=== PATIENT | male | born 1970 | race Caucasian/White ===

== ENCOUNTER 2020-04-24 11:07 | Outpatient (REF) | payer OTHER, SELFPAY | END 2020-04-24 11:08 | disposition home or self-care (01) | LOC: HO.LAB 11:07 | PROVIDERS: Visit Provider Internal Medicine | DX: Z20.828 Contact with and (suspected) exposure to other viral communicable diseases (principal) | CPT/HCPCS: C9803; U0003 ==

== ENCOUNTER 2020-05-20 11:58 | Outpatient (REF) | payer OTHER, SELFPAY ==
[2020-05-20 12:58] LABS: MANUAL DIFF FLAG NO
[2020-05-20 13:04] LABS: Basophils Absolute Auto 0.1 X10*3/uL (0.0-0.2); Basophils Percent Auto 0.7 % (0-2); Eosinophils Absolute Auto 0.2 X10*3/uL (0.0-0.4); Eosinophils Percent Auto 1.3 % (0-4); Hematocrit 41.3 % (42-52); Hemoglobin 13.5 g/dl (14.0-18.0); Imm Gran Abs Auto 0.02 X10*3/uL (0.00-0.03); Imm Gran Pct Auto 0.2 % (0.0-0.4); Lymphocytes Absolute Auto 3.4 X10*3/uL (1.2-4.9); Lymphocytes Percent Auto 29.1 % (20-40); Mean Corpuscular HGB Conc 32.7 g/dl (31.0-36.0); Mean Corpuscular Hemoglobin 28.7 pg (27.0-33.0); Mean Corpuscular Volume 87.7 fL (80-98); Mean Platelet Volume 10.3 fL (9.4-12.4); Monocytes Percent Auto 8.8 % (2-11); Neutrophils Percent Auto 59.9 % (45-73); Platelet Count 395 X10*3/uL (160-400); Red Blood Count 4.71 X10*6/uL (4.60-5.80); Red Cell Distribution Width 14.2 % (11.0-16.0); White Blood Count 11.6 X10*3/uL (4.8-10.8)
[2020-05-20 13:55] LABS: Alanine Aminotransferase 17 U/L (0-40); Albumin Level 4.4 g/dL (3.5-5.0); Alkaline Phosphatase 73 U/L (39-117); Anion Gap 12 (12-20); Aspartate Amino Transferase 22 U/L (5-37); Bilirubin Total 0.4 mg/dL (0.0-1.0); Blood Urea Nitrogen 12 mg/dL (9-16); Calcium 8.7 mg/dL (8.4-10.2); Carbon Dioxide 25 mmol/L (22-29); Chloride 104 mmol/L (96-108); Cholesterol 240 mg/dL; Estimated Glomerular Filt Rate > 60; Glucose Fasting 106 mg/dL (60-99); HDL Cholesterol 52 mg/dL; LDL Cholesterol Calculated 123 mg/dl; Potassium 4.2 mmol/l (3.3-5.1); Sodium 137 mmol/L (135-145); Total Protein 7.4 g/dL (6.5-8.0); Triglycerides 325 mg/dL
== END 2020-05-20 11:59 | disposition home or self-care (01) ==
LOC: HO.LAB 11:58
PROVIDERS: PCP Internal Medicine; Visit Provider Internal Medicine
DX: Z00.00 Encounter for general adult medical examination without abnormal findings (principal); E11.9 Type 2 diabetes mellitus without complications
CPT/HCPCS: 36415; 80053; 80061; 85025

== ENCOUNTER 2020-06-08 10:22 | Outpatient (REF) | payer OTHER, SELFPAY | END 2020-06-08 10:23 | disposition home or self-care (01) | LOC: HO.LAB 10:22 | PROVIDERS: Visit Provider Internal Medicine | DX: Z20.828 Contact with and (suspected) exposure to other viral communicable diseases (principal) | CPT/HCPCS: C9803; U0003 ==

== ENCOUNTER 2020-06-17 12:38 | Outpatient (REF) | payer OTHER, SELFPAY | END 2020-06-17 12:39 | disposition home or self-care (01) | LOC: HO.LAB 12:38 | PROVIDERS: Visit Provider Internal Medicine | DX: Z20.828 Contact with and (suspected) exposure to other viral communicable diseases (principal) | CPT/HCPCS: 36415; C9803; U0003 ==

== ENCOUNTER → 2020-06-25 11:27 | Outpatient (BNVA) | payer MEDICAID, SELFPAY | PROVIDERS: PCP Internal Medicine; Visit Provider Internal Medicine Gastroenterology | DX: Z76.89 Persons encountering health services in other specified circumstances (principal) ==

== ENCOUNTER 2020-06-30 11:26 | Outpatient (REF) | payer OTHER, SELFPAY | END 2020-06-30 11:27 | disposition home or self-care (01) | LOC: HO.LAB 11:26 | PROVIDERS: Visit Provider Internal Medicine | DX: Z20.822 Contact with and (suspected) exposure to COVID-19 (principal) | CPT/HCPCS: 36415; C9803; U0003 ==

== ENCOUNTER 2020-07-07 09:47 | Outpatient (REF) | payer OTHER, SELFPAY ==
--- NOTE | 2020-07-07 09:50 | US_ITS ---
EXAMINATION: US ABDOMEN COMPLETE CLINICAL INFORMATION: Status post surgery of gastric cancer 13 years ago, abdominal pain. COMPARISON: None TECHNIQUE: Real-time imaging of the abdominal viscera. FINDINGS: PANCREAS: The pancreas is completely obscured by overlying gas. ABDOMINAL AORTA: The proximal, mid, and distal segments are normal in caliber. INFERIOR VENA CAVA: Visualized portions are normal. LIVER: The liver is a normal size, heterogenous with normal contour. There is a hyperechoic lesion in the right hepatic lobe measuring 5.2 x 1.9 x 2.2 cm most likely a hemangioma. Differential diagnoses includes focal fatty infiltration. GALLBLADDER: Surgically absent. COMMON BILE DUCT: Normal in caliber measuring 0.25 cm in diameter. RIGHT KIDNEY: Normal. No hydronephrosis. No renal calculi or focal parenchymal lesions. The kidney measures 9.9 cm in maximum dimension. LEFT KIDNEY: Normal. No hydronephrosis. No renal calculi or focal parenchymal lesions. The kidney measures 10.8 cm in maximum dimension. SPLEEN: Normal. The spleen measures 7.2 cm in maximum dimension. FREE FLUID: None. US/US abdomen complete IMPRESSION: 1. Likely right hepatic lobe hemangioma. Differential diagnosis includes focal fatty infiltration. 2. The rest of the abdominal ultrasound is unremarkable.
== END 2020-07-07 09:48 | disposition home or self-care (01) ==
LOC: HO.US 09:47
PROVIDERS: Visit Provider Internal Medicine Gastroenterology
DX: R10.9 Unspecified abdominal pain (principal)
CPT/HCPCS: 76700

== ENCOUNTER 2020-07-15 08:56 | Outpatient (REF) | payer OTHER, SELFPAY ==
[2020-07-15 09:46] LABS: MANUAL DIFF FLAG NO
[2020-07-15 09:52] LABS: Basophils Absolute Auto 0.1 X10*3/uL (0.0-0.2); Basophils Percent Auto 0.5 % (0-2); Eosinophils Absolute Auto 0.4 X10*3/uL (0.0-0.4); Eosinophils Percent Auto 3.2 % (0-4); Hemoglobin 13.6 g/dl (14.0-18.0); Imm Gran Abs Auto 0.04 X10*3/uL (0.00-0.03); Imm Gran Pct Auto 0.4 % (0.0-0.4); Lymphocytes Absolute Auto 4.7 X10*3/uL (1.2-4.9); Lymphocytes Percent Auto 42.5 % (20-40); Mean Corpuscular HGB Conc 32.4 g/dl (31.0-36.0); Mean Corpuscular Hemoglobin 27.9 pg (27.0-33.0); Mean Corpuscular Volume 86.1 fL (80-98); Mean Platelet Volume 9.3 fL (9.4-12.4); Monocytes Percent Auto 8.7 % (2-11); Neutrophils Absolute Auto 4.9 X10*3/uL (2.0-8.3); Neutrophils Percent Auto 44.7 % (45-73); Platelet Count 468 X10*3/uL (160-400); Red Blood Count 4.88 X10*6/uL (4.60-5.80); Red Cell Distribution Width 13.7 % (11.0-16.0)
[2020-07-15 10:39] LABS: Alanine Aminotransferase 17 U/L (0-40); Albumin Level 4.1 g/dL (3.5-5.0); Alkaline Phosphatase 74 U/L (39-117); Anion Gap 15 (12-20); Aspartate Amino Transferase 16 U/L (5-37); Bilirubin Total 0.5 mg/dL (0.0-1.0); Blood Urea Nitrogen 12 mg/dL (9-16); C Reactive Protein 0.68 mg/dL (< or = 0.50); Calcium 8.9 mg/dL (8.4-10.2); Carbon Dioxide 24 mmol/L (22-29); Chloride 104 mmol/L (96-108); Estimated Glomerular Filt Rate > 60; Glucose Random 91 mg/dL (60-115); Lipase 8 U/L (8-78); Potassium 4.3 mmol/L (3.3-5.1); Sodium 139 mmol/L (135-145); Total Protein 7.1 g/dL (6.5-8.0)
== END 2020-07-15 08:57 | disposition home or self-care (01) ==
LOC: HO.LAB 08:56
PROVIDERS: PCP Physician Assistant; Visit Provider Internal Medicine Gastroenterology
DX: R10.9 Unspecified abdominal pain (principal)
CPT/HCPCS: 36415; 80053; 83690; 85025; 86140

== ENCOUNTER → 2020-08-20 10:06 | Outpatient (BNVA) | payer OTHER, SELFPAY | PROVIDERS: PCP Physician Assistant; Visit Provider Internal Medicine Gastroenterology ==

== ENCOUNTER 2020-09-01 06:17 | Day surgery (SDC) | payer OTHER, SELFPAY ==
--- NOTE | 2020-08-31 10:38 | HO.ANESPROP2 ---
Documented by User: Irais Tatyana 08/31/20 10:40 HPI - Anesthesia Eval Consult details Narrative: 50yo M for Upper Endoscopy s/p partial gastrectomy 2007 r/t gastric cancer PMFSH Active Problems Active Problems: All Active Problems (Updated 08/20/20 @ 10:42 by Cristina Mendez MD) GERD (gastroesophageal reflux disease) (Acute) Stomach cancer (Acute) Physical exam (Acute) Myalgia (Acute) Abdominal pain (Acute) Back pain (Acute) Past Medical History Medical History Depression GERD (gastroesophageal reflux disease) Stomach cancer Family History Family History Father No problems noted. Mother Hx of type 1 diabetes mellitus Family history of high blood pressure Surgical History Surgical History H/O colonoscopy History of esophagogastroduodenoscopy (EGD) History of stomach cancer History of tonsillectomy Hx of bilateral hip replacements Hx of cholecystectomy Social History Social History Household Members: Spouse and Children Alcohol intake: current Alcohol intake frequency: does not drink Smoking Status: Current every day smoker Tobacco Type: Cigarette Cigarettes Per Day: 10 Smoked in Last 30 Days: Yes Patient Interested in Nicotine Replacement: No Use of substances other than those prescribed or required for medical reasons: No Advance Directives: No Advance Directives Information Provided: Yes Recently lost weight without trying: No Meds Allergies Allergy/AdvReac Type Severity Reaction Status Date / Time No Known Allergies Allergy Verified 08/20/20 10:07 Home Medications Medication Instructions Recorded Confirmed Last Taken Type gabapentin 100 mg capsule 100 mg PO TID 06/24/20 08/20/20 Unknown History sertraline 100 mg tablet 100 mg PO DAILY 06/24/20 08/20/20 Unknown History trazodone 100 mg tablet 100 mg PO BEDTIME 06/24/20 08/20/20 Unknown History melatonin 1 cap PO DAILY 08/11/20 08/20/20 Unknown History Exam Exam Date and Time: August 31, 2020 1038 Pertinent Lab Results Pertinent Lab Results: Laboratory Tests 07/15/20 07/15/20 09:12 09:12 WBC 11.0 H Hgb 13.6 L Hct 42.0 Plt Count 468 H Sodium 139 Potassium 4.3 Chloride 104 Carbon Dioxide 24 BUN 12 Creatinine 1.00 Assessment and Plan Assessment Anesthesia Assessment: Chart Reviewed Documented by User: Fabiana Dennis 09/01/20 08:07 [facility] Past Medical History Medical History Depression GERD (gastroesophageal reflux disease) Stomach cancer Family History Family History Father No problems noted. Mother Hx of type 1 diabetes mellitus Family history of high blood pressure Surgical History Surgical History H/O colonoscopy History of esophagogastroduodenoscopy (EGD) History of stomach cancer History of tonsillectomy Hx of bilateral hip replacements Hx of cholecystectomy Social History Social History Household Members: Spouse and Children Alcohol intake: current Alcohol intake frequency: does not drink Smoking Status: Current every day smoker Tobacco Type: Cigarette Cigarettes Per Day: 10 Smoked in Last 30 Days: Yes Patient Interested in Nicotine Replacement: No Use of substances other than those prescribed or required for medical reasons: No Advance Directives: No Advance Directives Information Provided: Yes Recently lost weight without trying: No Meds Allergies Allergy/AdvReac Type Severity Reaction Status Date / Time No Known Allergies Allergy Verified 08/20/20 10:07 Home Medications Medication Instructions Recorded Confirmed Last Taken Type gabapentin 100 mg capsule 100 mg PO TID 06/24/20 08/20/20 Unknown History sertraline 100 mg tablet 100 mg PO DAILY 06/24/20 08/20/20 Unknown History trazodone 100 mg tablet 100 mg PO BEDTIME 06/24/20 08/20/20 Unknown History melatonin 1 cap PO DAILY 08/11/20 08/20/20 Unknown History Exam Airway Mallampati Class: II TM Dist: >3cm Neck ROM: Full Loose/Missing/Broken Teeth: No Heart: RRR Lungs: CTA Assessment and Plan Assessment Anesthesia Assessment: Anesthesia Plan Discussed and Chart Reviewed Final Anesthetic Review NPO: Yes ASA Class: II Final Preanesthetic Review: Meds/Allgs Chart Reviewed, Consent Obtained/Reviewed and Anes Risks/Benef Reviewed Patient Risk: Low Procedure Risk: Intermediate Anesthetic Plan Anesthetic Plan: MAC: Disposition: Standard PACU
[2020-09-01 06:28] VITALS: BP 129/82; PULSE 79; RESP 15; TEMP 36.2; O2SAT 98; BMI 32.4
--- NOTE | 2020-09-01 07:19 | W.PM.OPN ---
Operative Note Operative Note Date of Service: 09/01/20 Narrative: Pre-op diagnosis: Abdominal pain, postprandial nausea and vomiting Post-op diagnosis: other (Gastric outlet obstruction, ? Pyloric mass) Procedure: FLEXIBLE TRANSORAL UPPER GASTROINTESTINAL ENDOSCOPY WITH BIOPSIES Consent: Indications for the procedure and potential complications of bleeding, perforation, reaction to medications and missed diagnosis were discussed with the patient and informed consent was obtained. Instrument: Olympus GIF H 190 mid size upper endoscope Monitoring: Vital signs and clinical assessment, continuous EKG monitoring, Pulse oximetry, Carbon Dioxide monitoring and blood pressure monitoring were done throughout the procedure. Procedure: The patient was placed in the left lateral decubitis position and pre-procedure medications were administered and a bite block was placed. The endoscope was inserted into the mouth and advanced under direct vision to the third part of duodenum. A careful inspection was made as the upper endoscope was withdrawn including a retroflexed examination of the proximal stomach; Findings and interventions are described below. Findings: Larynx: Normal Esophagus: GE junction at 36 cms.. No esophagitis or Ray Stomach: Large amount of retained partially digested food in the stomach. ?Partially obstructing mass just distal to the pylorus. Biopsies were obtained. Retroflexed examination was not performed due to risk of aspiration. Duodenum: Normal bulb and descending duodenum Intervention: Biopsies as noted above Impression and Post Procedure Diagnosis: Endoscopy Findings: STOMACH: Large amount of retained partially digested food in the stomach. ?Partially obstructing mass just distal to the pylorus. Biopsies were obtained. Retroflexed examination was not performed due to risk of aspiration. Plan: Await pathology results. Patient will be scheduled for an abdominal CT scan for further evaluation of his symptoms and follow-up of suspected pyloric mass He has an appointment on 09/17/20 in the GI Clinic with Cristina Mendez M.D. Above findings were reviewed with the patient. Surgeon: Cristina Mendez MD Anesthesia: MAC (Dr Dennis) Connection Worker: Kinjal Sow Estimated blood loss (mL): 0 Pathology: other (A. Pyloric mass) Condition: stable Disposition: PACU
--- NOTE | 2020-09-01 07:19 | MHC.SHP ---
Pre-Procedural Eval Section A The patient is an INPATIENT: No Changes since office visit: Yes Patient answered all questions; No Cold of Flu in the past 2 weeks, No New Medical Problems and No Changes in Medication The History & Physical has been completed within 30 days and I have reviewed it.: Yes Section B Chief Complaint: Dysphagia, Vomiting Allergies: Allergies Allergy/AdvReac Type Severity Reaction Status Date / Time No Known Allergies Allergy Verified 08/20/20 10:07 Exam Surgical H&P Exam: Normal: Heart, Normal: Lungs and Normal: Extremities and Significant Findings: Abdomen (epigastric and LUQ tenderness) Plan Diagnosis/Plan: Unchanged I have reviewed the history and physical and performed a pertinent physical examination on my patient. No changes have occurred unless specified.
[2020-09-01 07:58] VITALS: BP 109/61; PULSE 78; RESP 18; TEMP 36.3; O2SAT 98
[2020-09-01] MEDS: Lactated Ringers 1,000 ML 100 ML IVCONT (08:00)
[2020-09-01 08:13] VITALS: BP 111/69; PULSE 73; RESP 20; O2SAT 98
[2020-09-01 08:28] VITALS: BP 117/76; PULSE 75; RESP 18; O2SAT 98
== END 2020-09-01 10:15 | disposition home or self-care (01) ==
PROVIDERS: PCP Physician Assistant; Visit Provider Internal Medicine Gastroenterology
PROC: 0DJ08ZZ Inspection of Upper Intestinal Tract, Via Natural or Artificial Opening Endoscopic (ICD-10-PCS; CPT 43235; principal; 2020-09-01 07:30)
DX: R13.10 Dysphagia, unspecified (principal); K31.1 Adult hypertrophic pyloric stenosis; R19.09 Other intra-abdominal and pelvic swelling, mass and lump; K21.9 Gastro-esophageal reflux disease without esophagitis; Z90.3 Acquired absence of stomach [part of]; Z85.028 Personal history of other malignant neoplasm of stomach; Z90.49 Acquired absence of other specified parts of digestive tract; Z79.899 Other long term (current) drug therapy; F17.210 Nicotine dependence, cigarettes, uncomplicated
CPT/HCPCS: 43239; 88305; 88342

== ENCOUNTER 2020-09-08 08:12 | Outpatient (REF) | payer OTHER, SELFPAY ==
[2020-09-08 09:56] LABS: Blood Urea Nitrogen 11 mg/dL (9-16); Estimated Glomerular Filt Rate > 60
== END 2020-09-08 08:13 | disposition home or self-care (01) ==
LOC: HO.LAB 08:12
PROVIDERS: Visit Provider Internal Medicine Gastroenterology
DX: R10.9 Unspecified abdominal pain (principal); C16.9 Malignant neoplasm of stomach, unspecified
CPT/HCPCS: 36415; 82378; 82565; 84520

== ENCOUNTER 2020-09-10 06:51 | Outpatient (REF) | payer OTHER, SELFPAY ==
--- NOTE | ~2020-09-10 | CT_ITS ---
EXAMINATION: CT ABDOMEN AND PELVIS WITH CONTRAST CLINICAL INFORMATION: Unspecified abdominal pain COMPARISON: Ultrasound 07/07/2020 TECHNIQUE: Multidetector volumetric images were obtained from the superior aspect of the liver through the pubic symphysis following administration 85 mL of Omnipaque 350 intravenous contrast. Sagittal and coronal reformatted images were obtained on the technologist's workstation. Oral contrast: Yes This CT examination was performed using dose optimization techniques as appropriate, variously including the following: *Automated exposure control *Adjustment of mA and/or kV according to patient size (this includes techniques or standardized protocols for targeted exams where dose is matched to indication/reason for exam; i.e. extremities or head) *Use of iterative reconstruction technique DLP: 536 mGy-cm FINDINGS: LUNG BASES: The visualized lung bases are unremarkable. LIVER, GALLBLADDER, AND BILIARY TREE: The liver is normal in size, shape, and attenuation. There is no biliary ductal dilatation. There is an area of hypoattenuation measuring 0.9 cm at the periphery of segment IVb of the liver. This is nonspecific. This could represent an area of focal fatty infiltration along the gallbladder fossa.. Cholecystectomy. PANCREAS: The pancreas appears somewhat atrophic with no focal pancreatic lesion identified. No ductal dilatation. SPLEEN: Unremarkable. ADRENAL GLANDS: Unremarkable. KIDNEYS AND URETERS: The kidneys are normal in size, shape, and attenuation. No hydronephrosis, hydroureter, or calculi seen. No perinephric stranding. BLADDER: Unremarkable. GASTROINTESTINAL TRACT: Distended stomach without wall thickening. Distal gastrectomy with gastrojejunal anastomosis. Contrast flows throughout the small bowel and into the colon. No obstruction. No dilated loops of bowel. Colonic diverticulosis is noted without diverticulitis. No free air. No free fluid. ABDOMINAL WALL: No significant hernia is appreciated. LYMPH NODES: Normal. VASCULAR: Normal caliber aorta with mild atherosclerotic calcifications. PELVIC VISCERA: Not well evaluated due to hardware artifact. OSSEOUS STRUCTURES: Bilateral total hip arthroplasties are typical in positioning and alignment. Mild degenerative changes of the spine. CT/CT abdomen pelvis w con IMPRESSION: No acute abnormality. Postsurgical changes of distal gastrectomy with gastrojejunal anastomosis. No obstruction. No dilated bowel. No inflammatory changes are seen throughout the abdomen or pelvis. Likely areas of focal fatty infiltration in the liver along the gallbladder fossa.
[2020-09-10] MEDS: Barium Sulfate Oral (Vanilla) 450 ML ORAL.SUSP 900 ML PO (09:01)
== END 2020-09-10 06:52 | disposition home or self-care (01) ==
LOC: HO.CT 06:51
PROVIDERS: PCP Family Medicine; Visit Provider Internal Medicine Gastroenterology
DX: C16.9 Malignant neoplasm of stomach, unspecified (principal); R10.9 Unspecified abdominal pain; R11.2 Nausea with vomiting, unspecified
CPT/HCPCS: 74177; Q9967

== ENCOUNTER → 2020-09-17 15:09 | Outpatient (BNVA) | payer OTHER, SELFPAY | PROVIDERS: PCP Physician Assistant; Visit Provider Internal Medicine Gastroenterology ==

== ENCOUNTER 2020-11-03 12:34 | Outpatient (REF) | payer OTHER, SELFPAY ==
--- NOTE | ~2020-11-03 | XR_ITS ---
EXAMINATION: XR LUMBOSACRAL SPINE CLINICAL INFORMATION: Lower back pain. COMPARISON: Most recent CT abdomen/pelvis dated 09/10/2020. TECHNIQUE: Three views of the lumbosacral spine. FINDINGS: Normal vertebral body alignment. The lumbar lordosis is maintained. No acute fracture or subluxation. No loss of vertebral body height. Multilevel loss of intervertebral disc height with anterior endplate osteophytes, most prominent within the lower thoracic spine. Prominent bilateral facet arthropathy at L4-L5 and L5-S1. Peripherally calcified structure redemonstrated overlying the left abdomen. Left upper quadrant bowel sutures are redemonstrated. Partially visualized hip arthroplasties. XR/XR lumbar spine 2-3V IMPRESSION: Multilevel degenerative disc disease, most prominent within the lower thoracic spine, similar when compared to the recent CT.
--- NOTE | ~2020-11-03 | XR_ITS ---
EXAMINATION: XR ELBOW, RIGHT CLINICAL INFORMATION: Right elbow pain. COMPARISON: None TECHNIQUE: AP, lateral, and oblique views of the right elbow. FINDINGS: No acute fracture or dislocation. Severe ulnotrochlear and more moderate radiocapitellar joint space narrowing. Ulnotrochlear bony remodeling, subchondral cirrhosis, and large marginal osteophytes. Moderate radiocapitellar marginal osteophytes. No osseous erosion. No significant joint effusion. Olecranon enthesophyte. 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 Olecranon spurring.
[2020-11-03 13:46] LABS: Rheumatoid Factor < 15.0 IU/mL (<15.0)
[2020-11-04 13:56] LABS: Anti Nuclear Antibody Screen NEGATIVE (NEGATIVE)
[2020-11-06 12:51] LABS: Cyclic Citrullinated Peptide <16 UNITS
== END 2020-11-03 12:35 | disposition home or self-care (01) ==
LOC: HO.LAB 12:34
PROVIDERS: PCP Physician Assistant; Visit Provider Physician Assistant
DX: M54.5 Low back pain (principal); M25.521 Pain in right elbow; M13.0 Polyarthritis, unspecified
CPT/HCPCS: 36415; 72100; 73070; 86038; 86039; 86200; 86431

== ENCOUNTER → 2020-11-23 09:41 | Outpatient (BNVA) | payer OTHER, SELFPAY | PROVIDERS: PCP Physician Assistant; Visit Provider Anesthesiology | DX: M15.9 Polyosteoarthritis, unspecified (principal); M47.816 Spondylosis without myelopathy or radiculopathy, lumbar region; M17.10 Unilateral primary osteoarthritis, unspecified knee | CPT/HCPCS: 99202 ==

== ENCOUNTER → 2020-11-24 09:20 | Outpatient (BNVA) | payer OTHER, SELFPAY | PROVIDERS: PCP Physician Assistant; Visit Provider Orthopaedic Surgery | DX: M19.021 Primary osteoarthritis, right elbow (principal) | CPT/HCPCS: 99202 ==

== ENCOUNTER → 2020-12-02 13:00 | Outpatient (BNVA) | payer OTHER, SELFPAY | PROVIDERS: PCP Physician Assistant; Visit Provider Anesthesiology | DX: M19.021 Primary osteoarthritis, right elbow (principal); M16.0 Bilateral primary osteoarthritis of hip; M54.5 Low back pain; Z96.643 Presence of artificial hip joint, bilateral | CPT/HCPCS: 99212 ==

== ENCOUNTER 2020-12-03 11:04 | Outpatient (REF) | payer OTHER, SELFPAY | END 2020-12-03 11:05 | disposition home or self-care (01) | LOC: HO.LAB 11:04 | PROVIDERS: PCP Physician Assistant; Visit Provider Anesthesiology | DX: Z13.89 Encounter for screening for other disorder (principal) ==

== ENCOUNTER → 2020-12-24 12:15 | Outpatient (BNVA) | payer OTHER, SELFPAY | PROVIDERS: PCP Physician Assistant; Visit Provider Internal Medicine Gastroenterology ==

== ENCOUNTER 2021-02-02 08:33 | Day surgery (SDC) | payer OTHER, SELFPAY ==
[2021-01-26 10:54] VITALS: BMI 32.4
--- NOTE | 2021-02-01 10:17 | HO.ANESPROP2 ---
Documented by User: Irais Joe NP 02/01/21 10:18 HPI - Anesthesia Eval Consult details Narrative: 50yo M for Upper Endoscopy s/p partial gastrectomy 2006 r/t gastric cancer s/p EGD with MAC 09/01/20 [facility] Active Problems Active Problems: All Active Problems (Updated 12/23/20 @ 08:25 by Herve Chinchilla PA-C) Internal derangement of elbow (Acute) Physical exam (Acute) Myalgia (Acute) Abdominal pain (Acute) Back pain (Acute) Arthritis (Acute) MDD (major depressive disorder), recurrent episode, moderate (Acute) Polyarthritis (Acute) Lumbar spine pain (Acute) Right elbow pain (Acute) Arthritis of right elbow (Acute) Smoker (Acute) Primary osteoarthritis, right elbow (Acute) Knee osteoarthritis (Acute) Spondylosis of lumbar spine (Acute) Generalized osteoarthritis (Acute) GERD (gastroesophageal reflux disease) (Acute) Stomach cancer (Acute) Past Medical History Medical History (Updated 12/23/20 @ 08:25 by Herve Chinchilla PA-C) Depression Generalized osteoarthritis GERD (gastroesophageal reflux disease) Knee osteoarthritis Spondylosis of lumbar spine Stomach cancer Family History Family History Father No problems noted. Mother Hx of type 1 diabetes mellitus Family history of high blood pressure Surgical History Surgical History H/O colonoscopy History of esophagogastroduodenoscopy (EGD) History of stomach cancer History of tonsillectomy Hx of bilateral hip replacements Hx of cholecystectomy Social History Social History Household Members: Spouse and Children Are you a primary medicare sales executive to a significant other at home: No Do you presently have visiting nurse or other home services: No Alcohol intake: current Alcohol intake frequency: does not drink Patient Tobacco Use Status: Current everyday Tobacco user Tobacco use type: Cigarette Cigarettes Per Day: 10 Advance Directives Information Provided: No Meds Allergies Allergy/AdvReac Type Severity Reaction Status Date / Time No Known Allergies Allergy Verified 12/24/20 12:16 Home Medications Medication Instructions Recorded Confirmed Last Taken Type dicyclomine 20 mg tablet 1 tab PO TID 12/08/20 01/26/21 Unknown History Exam Exam Date and Time: February 01, 2021 1017 Height,Weight and Vital Signs: Height 5 ft 5 in Weight 88.451 kg Pertinent Lab Results Pertinent Lab Results: Laboratory Tests 07/15/20 07/15/20 09/08/20 09:12 09:12 08:40 WBC 11.0 H Hgb 13.6 L Hct 42.0 Plt Count 468 H Sodium 139 Potassium 4.3 Chloride 104 Carbon Dioxide 24 BUN 11 Creatinine 0.99 Assessment and Plan Assessment Anesthesia Assessment: Chart Reviewed Documented by User: Servando Noland MD 02/02/21 10:07 [facility] Past Medical History Medical History (Updated 12/23/20 @ 08:25 by Herve Chinchilla PA-C) Depression Generalized osteoarthritis GERD (gastroesophageal reflux disease) Knee osteoarthritis Spondylosis of lumbar spine Stomach cancer Family History Family History Father No problems noted. Mother Hx of type 1 diabetes mellitus Family history of high blood pressure Family history of problems with anesthesia: No Surgical History Surgical History H/O colonoscopy History of esophagogastroduodenoscopy (EGD) History of stomach cancer History of tonsillectomy Hx of bilateral hip replacements Hx of cholecystectomy History of Problems with Anesthesia: No Social History Social History Household Members: Spouse and Children Are you a primary medicare sales executive to a significant other at home: No Do you presently have visiting nurse or other home services: No Alcohol intake: current Alcohol intake frequency: does not drink Patient Tobacco Use Status: Current everyday Tobacco user Tobacco use type: Cigarette Cigarettes Per Day: 10 Advance Directives Information Provided: No Meds Allergies Allergy/AdvReac Type Severity Reaction Status Date / Time No Known Allergies Allergy Verified 12/24/20 12:16 Home Medications Medication Instructions Recorded Confirmed Last Taken Type dicyclomine 20 mg tablet 1 tab PO TID 12/08/20 01/26/21 Unknown History Exam Airway Mallampati Class: II TM Dist: >3cm Neck ROM: Full Loose/Missing/Broken Teeth: No Assessment and Plan Assessment Anesthesia Assessment: Anesthesia Plan Discussed Final Anesthetic Review Family History of Problems with Anesthesia: No History of Problems with Anesthesia: No NPO: Yes ASA Class: III Final Preanesthetic Review: No Changes in Pt Med Stat, Meds/Allgs Chart Reviewed, Consent Obtained/Reviewed and Anes Risks/Benef Reviewed Patient Risk: Intermediate Procedure Risk: Low Anesthetic Plan Anesthetic Plan: MAC: Disposition: Standard PACU
[2021-02-02 08:51] VITALS: BP 124/76; PULSE 64; RESP 15; TEMP 36.8; O2SAT 97
[2021-02-02] MEDS: Lactated Ringers 1,000 ML 100 ML IVCONT (09:01)
--- NOTE | 2021-02-02 09:30 | MHC.SHP ---
Pre-Procedural Eval Section A Date of Service: 02/02/21 The patient is an INPATIENT: No The History & Physical has been completed within 30 days and I have reviewed it.: No Section B Chief Complaint: reflux disease Details of Present Illness: FU of gastric cancer Relevant Family History (Specify if Yes): No Present Medications: see Short Stay Collaborative assessment Medical History: Significant History (Depression Generalized osteoarthritis GERD (gastroesophageal reflux disease) Knee osteoarthritis Spondylosis of lumbar spine Stomach cancer) History of Previous Operations: Relevant previous surgery/procedure and date(s) (H/O colonoscopy History of esophagogastroduodenoscopy (EGD) History of stomach cancer History of tonsillectomy Hx of bilateral hip replacements Hx of cholecystectomy) Allergies: Allergies Allergy/AdvReac Type Severity Reaction Status Date / Time No Known Allergies Allergy Verified 12/24/20 12:16 Review of Systems Sugical H&P ROS: Negative: Constitution, Cardiovascular and Respiratory and Yes, Specify: Gastrointestinal (abdominal pain) Exam Surgical H&P Exam: Normal: Heart, Normal: Lungs, Normal: Extremities and Normal: Abdomen Plan Diagnosis/Plan: Unchanged I have reviewed the history and physical and performed a pertinent physical examination on my patient. No changes have occurred unless specified.
[2021-02-02 10:03] VITALS: BP 119/73; PULSE 89; RESP 16; TEMP 36.1; O2SAT 99
--- NOTE | 2021-02-02 10:07 | P.BOP_ITS ---
Brief Operative Note Date of Service: 02/02/21 Pre-op diagnosis: Abdominal pain, FU of gastric cancer Post-op diagnosis: other (Gastric outlet obstruction/suspected G-J anastomotic stenosis) Procedure: FLEXIBLE TRANSORAL UPPER GASTROINTESTINAL ENDOSCOPY WITH BIOPSIES Consent: Indications for the procedure and potential complications of bleeding, perforation, reaction to medications and missed diagnosis were discussed with the patient and informed consent was obtained. Instrument: Olympus GIF H 190 mid size upper endoscope Monitoring: Vital signs and clinical assessment, continuous EKG monitoring, Pulse oximetry, Carbon Dioxide monitoring and blood pressure monitoring were done throughout the procedure. Procedure: The patient was placed in the left lateral decubitis position and pre-procedure medications were administered and a bite block was placed. The endoscope was inserted into the mouth and advanced under direct vision to the third part of duodenum. A careful inspection was made as the upper endoscope was withdrawn including a retroflexed examination of the proximal stomach; Findings and interventions are described below. Findings: Larynx: Normal Esophagus: GE junction at 35 cms. A single 2 cms linear erosion at GEJ Stomach: Large amount of retained partially digested food in the stomach - which was suctioned (pt stated he is NPO since 11 pm last night). Edematous folds at Gastro-jejunal anastomosis with partial obstruction - multiple biopsies were obtained. Unable to advance a pediatric colonoscope through the anastomosis into the jejunum.? Grade 2 flap valve on retroflexed examination of the cardia. Intervention: Biopsies as noted above Impression and Post Procedure Diagnosis: Endoscopy Findings: ESOPHAGUS: Esophagitis with linear erosions STOMACH: Retained food in the stomach with suspected GOO ? due to stricture of Gastro-jejunal anastomosis. Plan: Await pathology results. Schedule an UGI to confirm gastric outlet obstruction. Patient has an appointment on 03/04/21 in the GI Clinic with Cristina Mendez M.D.- . Above findings were reviewed with the patient Surgeon: Cristina Mendez MD Anesthesia: MAC (Jenise Stone CRNA) Was an Telephone Cleaner used for this Procedure?: Yes Telephone Cleaner: Mishel Falcon Estimated blood loss (mL): 0 Pathology: other (A. Gastro-jejunal anastomosis bxs) Condition: stable Disposition: PACU
--- NOTE | 2021-02-02 10:12 | P.OP_ITS ---
Operative Note Operative Note Date of Service: 02/02/21 Narrative: Pre-op diagnosis:?Abdominal pain, FU of gastric cancer Post-op diagnosis:?other (Gastric outlet obstruction/suspected G-J anastomotic stenosis) Procedure:? FLEXIBLE TRANSORAL UPPER GASTROINTESTINAL ENDOSCOPY WITH BIOPSIES Consent:?Indications for the procedure and potential complications of bleeding, perforation, reaction to medications and missed diagnosis were discussed with the patient and informed consent was obtained. Instrument:?Olympus GIF H 190 mid size upper endoscope Monitoring: Vital signs and clinical assessment, continuous EKG monitoring, Pulse oximetry, Carbon Dioxide monitoring and blood pressure monitoring were done throughout the procedure. Procedure:?The patient was placed in the left lateral decubitis position and pre-procedure medications were administered and a bite block was placed. The endoscope was inserted into the mouth and advanced under direct vision to the third part of duodenum. A careful inspection was made as the upper endoscope was withdrawn including a retroflexed examination of the proximal stomach; Findings and interventions are described below. Findings: Larynx:??Normal Esophagus:?GE junction at 35 cms.? A single 2 cms linear erosion at GEJ Stomach:?Large amount of retained partially digested food in the stomach - which was suctioned (pt stated he is NPO since 11 pm last night).? Edematous folds at Gastro-jejunal anastomosis with partial obstruction - multiple biopsies were obtained.? Unable to advance a pediatric colonoscope through the anastomosis into the jejunum.? Grade 2 flap valve on retroflexed examination of the cardia. Intervention:?Biopsies as noted above Impression and Post Procedure Diagnosis: Endoscopy Findings: ESOPHAGUS: Esophagitis with linear erosions STOMACH: Retained food in the stomach with suspected GOO ? due to stricture of Gastro-jejunal anastomosis. Plan: Await pathology results. Schedule an upper GI to confirm gastric outlet obstruction Patient has an appointment on 03/04/21 in the GI Clinic with Cristina Mendez M.D.- . Above findings were reviewed with the patient Surgeon:?Cristina Mendez MD Anesthesia:?MAC (Jenise Stone, SANJAY) Was an Banquet Bartender used for this Procedure?:?Yes Banquet Bartender:?Mishel Falcon Estimated blood loss (mL):?0 Pathology:?other (A. Gastro-jejunal anastomosis bxs) Condition:?stable Disposition:?PACU
[2021-02-02 10:18] VITALS: BP 119/68; PULSE 68; RESP 16; TEMP 36.2; O2SAT 98
== END 2021-02-02 10:45 | disposition home or self-care (01) ==
PROVIDERS: PCP Physician Assistant; Visit Provider Internal Medicine Gastroenterology
PROC: 0DJ08ZZ Inspection of Upper Intestinal Tract, Via Natural or Artificial Opening Endoscopic (ICD-10-PCS; CPT 43235; principal; 2021-02-02 10:00)
DX: K21.00 Gastro-esophageal reflux disease with esophagitis, without bleeding (principal); K31.1 Adult hypertrophic pyloric stenosis; Z85.028 Personal history of other malignant neoplasm of stomach; Z98.0 Intestinal bypass and anastomosis status; Z90.3 Acquired absence of stomach [part of]; F32.9 Major depressive disorder, single episode, unspecified; M15.9 Polyosteoarthritis, unspecified; Z79.899 Other long term (current) drug therapy; Z90.49 Acquired absence of other specified parts of digestive tract; F17.210 Nicotine dependence, cigarettes, uncomplicated
CPT/HCPCS: 43239; 88305; 88342

== ENCOUNTER 2021-02-09 06:20 | Outpatient (REF) | payer OTHER, SELFPAY ==
--- NOTE | ~2021-02-09 | FL_ITS ---
EXAMINATION: XR FLUOROSCOPY WITH IMAGES CLINICAL INFORMATION: Spondylosis with myelopathy or radiculopathy COMPARISON: Lumbar spine study of November 03, 2020 TECHNIQUE: Fluoroscopy performed by Dr. Wong Zafar. Fluoroscopy time: 0.7 seconds DAP: 7.26 Gycm2 Images: 6 FINDINGS: 6 images demonstrate needle placement contrast injection which appear to be involving the L4-S1 neural foramina bilaterally FL/FL guidance in treatment room IMPRESSION: Bilateral spine injections.
== END 2021-02-09 06:21 | disposition home or self-care (01) ==
LOC: HO.RADIR 06:20
PROVIDERS: Visit Provider Anesthesiology
DX: M47.816 Spondylosis without myelopathy or radiculopathy, lumbar region (principal); M19.021 Primary osteoarthritis, right elbow
CPT/HCPCS: 64493; 64494; Q9967

== ENCOUNTER → 2021-02-17 13:18 | Outpatient (BNVA) | payer OTHER, SELFPAY | PROVIDERS: PCP Physician Assistant; Visit Provider Anesthesiology ==

== ENCOUNTER 2021-03-02 07:37 | Outpatient (REF) | payer OTHER, SELFPAY ==
--- NOTE | ~2021-03-02 | MR_ITS ---
EXAMINATION: MR LUMBAR SPINE WITHOUT CONTRAST CLINICAL INFORMATION: Other intervertebral disc degeneration. COMPARISON: CT of the abdomen and pelvis September 10, 2020. TECHNIQUE: MRI of the lumbar spine was obtained using routine sequences without contrast. FINDINGS: The lumbar vertebral bodies maintain normal heights. There is mild chronic anterior wedging compression deformity at T12, also present on September 10, 2020. Minimal disc height loss is seen at L3-L4. There is no subchondral bone marrow edema. The distal spinal cord appears normal. The conus medullaris terminates normally at the L1-L2 level. The visualized paraspinal muscles and intra-abdominal and pelvic contents are within normal limits. SPINAL LEVELS: T12-L1: Mild disc bulging. No spinal canal or neural foraminal stenosis. L1-L2: No posterior disc abnormality. No spinal canal or neural foraminal stenosis. L2-L3: Disc bulging. No spinal canal or neural foraminal stenosis. L3-L4: Disc bulging with mild facet arthropathy. No spinal canal or neural foraminal stenosis. L4-L5: Disc bulging asymmetric to the left with mild facet arthropathy. Moderate right more than left neural foraminal stenosis. No spinal canal stenosis. L5-S1: No posterior disc abnormality. Mild facet arthropathy. No spinal canal or neural foraminal stenosis. MR/MR lumbar spine wo con IMPRESSION: Mild multilevel degenerative changes. At L4-L5 there is moderate right more than left neural foraminal stenosis but no spinal canal stenosis. Chronic appearing mild compression deformity seen at T12 with minimal associated marrow edema.
== END 2021-03-02 07:38 | disposition home or self-care (01) ==
LOC: HO.MRI 07:37
PROVIDERS: PCP Physician Assistant; Visit Provider Anesthesiology
DX: M51.36 Other intervertebral disc degeneration, lumbar region (principal); M47.817 Spondylosis without myelopathy or radiculopathy, lumbosacral region
CPT/HCPCS: 72148

== ENCOUNTER → 2021-03-04 15:39 | Outpatient (BNVA) | payer OTHER, SELFPAY | PROVIDERS: Visit Provider Internal Medicine Gastroenterology ==

== ENCOUNTER 2021-03-29 07:46 | Outpatient (REF) | payer OTHER, SELFPAY ==
--- NOTE | ~2021-03-29 | FL_ITS ---
EXAMINATION: XR GI SERIES CLINICAL INFORMATION: Unspecified abdominal pain COMPARISON: None TECHNIQUE: Routine upper GI contrast study was performed. FINDINGS: Following oral administration of thick barium and effervescent granules there is normal propagation of bolus from the oral cavity through the pharynx, esophagus into stomach. There is indentation of posterior cervical esophageal wall from ventral spondylosis at C5-C6 disc level. No intraluminal filling defect or extrinsic compression seen. On placing patient supine and prone lying, the course, caliber and peristalsis of the stomach and bulb is normal. There is evidence of previous partial gastrectomy with with gastroduodenal anastomosis. There is moderate gastroesophageal reflux. The mucosal pattern is normal. FLUOROSCOPY TIME: 2.6 minutes DOSE AREA PRODUCT: 40.725 uGy-m2 (microgray-meter squared) IMAGES: 47 FL/FL upper GI series IMPRESSION: Previous gastric bypass surgical changes seen. The anastomosis is patent. There is mild to moderate gastroesophageal reflux without hiatal hernia.
[2021-03-29] MEDS: Diatrizoate Meglumine, Sodium 120 ML SOLUTION PO (08:42)
[2021-03-29 09:55] LABS: Hematocrit 41.3 % (42-52); Hemoglobin 13.2 g/dl (14.0-18.0); Mean Corpuscular Hemoglobin 26.2 pg (27.0-33.0); Mean Corpuscular Volume 81.9 fL (80-98); Mean Platelet Volume 9.3 fL (9.4-12.4); Platelet Count 428 X10*3/uL (160-400); Red Blood Count 5.04 X10*6/uL (4.60-5.80); Red Cell Distribution Width 15.9 % (11.0-16.0); White Blood Count 8.4 X10*3/uL (4.8-10.8)
[2021-03-29 10:03] LABS: Estimated Average Glucose 120 mg/dL; Hemoglobin A1c % 5.8 %
[2021-03-29 10:15] LABS: Alanine Aminotransferase 25 U/L (0-40); Albumin Level 4.4 g/dL (3.5-5.0); Alkaline Phosphatase 115 U/L (39-117); Anion Gap 13 (12-20); Aspartate Amino Transferase 25 U/L (5-37); Bilirubin Total 0.4 mg/dL (0.0-1.0); Blood Urea Nitrogen 14 mg/dL (9-16); Calcium 10.2 mg/dL (8.4-10.2); Carbon Dioxide 27 mmol/L (22-29); Chloride 105 mmol/L (96-108); Cholesterol 272 mg/dL; Estimated Glomerular Filt Rate > 60; Glucose Fasting 117 mg/dL (60-99); HDL Cholesterol 57 mg/dL; Potassium 5.2 mmol/L (3.3-5.1); Sodium 140 mmol/L (135-145); Total Protein 7.8 g/dL (6.5-8.0); Triglycerides 484 mg/dL
[2021-03-29 10:38] LABS: TSH reflex Free T4 1.37 uIU/mL (0.32-4.0)
== END 2021-03-29 07:47 | disposition home or self-care (01) ==
LOC: HO.XRAY 07:46
PROVIDERS: Absent Provider Physician Assistant; PCP Physician Assistant; Visit Provider Internal Medicine Gastroenterology
DX: R10.9 Unspecified abdominal pain (principal); I10 Essential (primary) hypertension; Z13.29 Encounter for screening for other suspected endocrine disorder; Z13.220 Encounter for screening for lipoid disorders; Z13.1 Encounter for screening for diabetes mellitus
CPT/HCPCS: 36415; 74240; 80053; 80061; 83036; 84443; 85027

== ENCOUNTER → 2021-04-08 13:05 | Outpatient (BNVA) | payer OTHER, SELFPAY | PROVIDERS: PCP Physician Assistant; Visit Provider Internal Medicine Gastroenterology ==

== ENCOUNTER 2021-07-08 08:24 | Outpatient (REF) | payer OTHER, SELFPAY ==
--- NOTE | ~2021-07-08 | XR_ITS ---
EXAMINATION: XR SHOULDER, RIGHT CLINICAL INFORMATION: Other enthesopathies, not elsewhere classified. COMPARISON: None TECHNIQUE: 3 views of the right shoulder. FINDINGS: Bone alignment is normal. No fracture or dislocation is seen. The glenohumeral joint is normal. There is mild arthritis at the acromioclavicular joint. There are degenerative changes at the greater tuberosity. Soft tissues are unremarkable. XR/XR shoulder RT min 2V IMPRESSION: Arthritis at the acromioclavicular joint and cystic degenerative changes of the greater tuberosity.
--- NOTE | ~2021-07-08 | XR_ITS ---
EXAMINATION: XR HAND, RIGHT CLINICAL INFORMATION: Contracture COMPARISON: None TECHNIQUE: PA, lateral, and oblique views of the right hand. FINDINGS: There is an old healed right fifth metacarpal fracture. No acute fracture or dislocation is seen. There is slight extension at the IP joint of the thumb. Joint spaces are otherwise normal. Soft tissues are normal. XR/XR hand RT 2V IMPRESSION: Old healed right fifth metacarpal fracture. Extension at the IP joint of the thumb.
[2021-07-08 09:12] LABS: Hematocrit 37.2 % (42.0-52.0); Hemoglobin 11.6 g/dl (14.0-18.0); Mean Corpuscular HGB Conc 31.2 g/dl (31.0-36.0); Mean Corpuscular Hemoglobin 26.6 pg (27.0-33.0); Mean Corpuscular Volume 85.3 fL (80.0-98.0); Mean Platelet Volume 10.4 fL (9.4-12.4); Platelet Count 150 X10*3/uL (160-400); Red Blood Count 4.36 X10*6/uL (4.60-5.80); Red Cell Distribution Width 15.7 % (11.0-16.0); White Blood Count 7.9 X10*3/uL (4.8-10.8)
[2021-07-08 09:39] LABS: Estimated Average Glucose 123 mg/dL; Hemoglobin A1C 135.1967 umol/L; Hemoglobin A1c % 5.9 %
[2021-07-08 09:47] LABS: Alanine Aminotransferase 16 U/L (0-40); Albumin Level 3.9 g/dL (3.5-5.0); Alkaline Phosphatase 95 U/L (39-117); Anion Gap 12 (12-20); Aspartate Amino Transferase 20 U/L (5-37); Bilirubin Total 0.2 mg/dL (0.0-1.0); Blood Urea Nitrogen 10 mg/dL (9-16); Calcium 9.1 mg/dL (8.4-10.2); Carbon Dioxide 24 mmol/L (22-29); Chloride 103 mmol/L (96-108); Cholesterol 205 mg/dL; Estimated Glomerular Filt Rate > 60; Glucose Fasting 133 mg/dL (60-99); HDL Cholesterol 46 mg/dL; Potassium 4.3 mmol/L (3.3-5.1); Sodium 135 mmol/L (135-145); Total Protein 7.2 g/dL (6.5-8.0); Triglycerides 496 mg/dL
[2021-07-08 10:08] LABS: Prostate Specific Antigen Scr 0.44 ng/mL (<0.05-4.0); TSH reflex Free T4 1.61 uIU/mL (0.32-4.0)
== END 2021-07-08 08:25 | disposition home or self-care (01) ==
LOC: HO.XRAY 08:24
PROVIDERS: PCP Physician Assistant; Visit Provider Physician Assistant
DX: M24.541 Contracture, right hand (principal); M77.8 Other enthesopathies, not elsewhere classified; E78.2 Mixed hyperlipidemia; M19.011 Primary osteoarthritis, right shoulder; Z12.5 Encounter for screening for malignant neoplasm of prostate
CPT/HCPCS: 36415; 73030; 73120; 80053; 80061; 83036; 84153; 84443; 85027

== ENCOUNTER 2021-07-27 15:58 | Outpatient (REF) | payer OTHER, SELFPAY ==
[2021-07-27 17:03] LABS: Hematocrit 40.2 % (42.0-52.0); Hemoglobin 12.6 g/dl (14.0-18.0); Mean Corpuscular HGB Conc 31.3 g/dl (31.0-36.0); Mean Corpuscular Hemoglobin 26.6 pg (27.0-33.0); Mean Corpuscular Volume 84.8 fL (80.0-98.0); Mean Platelet Volume 9.1 fL (9.4-12.4); Platelet Count 366 X10*3/uL (160-400); Red Blood Count 4.74 X10*6/uL (4.60-5.80); Red Cell Distribution Width 15.9 % (11.0-16.0); White Blood Count 13.1 X10*3/uL (4.8-10.8)
[2021-07-27 17:29] LABS: Alanine Aminotransferase 21 U/L (0-40); Albumin Level 4.2 g/dL (3.5-5.0); Alkaline Phosphatase 96 U/L (39-117); Anion Gap 13 (12-20); Aspartate Amino Transferase 25 U/L (5-37); Bilirubin Direct < 0.2 mg/dL (0.0-0.5); Bilirubin Total 0.3 mg/dL (0.0-1.0); Blood Urea Nitrogen 11 mg/dL (9-16); Calcium 9.5 mg/dL (8.4-10.2); Carbon Dioxide 28 mmol/L (22-29); Chloride 104 mmol/L (96-108); Estimated Glomerular Filt Rate > 60; Glucose Random 98 mg/dL (60-115); Iron 30 mcg/dL (45-160); Lipase 17 U/L (8-78); Percent Iron Saturation 7 % (15-50); Potassium 4.7 mmol/L (3.3-5.1); Sodium 140 mmol/L (135-145); Total Iron Binding Capacity 457 mcg/dL (228-428); Total Protein 7.4 g/dL (6.5-8.0); Unsaturated Iron Binding 427 ug/dL
== END 2021-07-27 15:59 | disposition home or self-care (01) ==
LOC: HO.LAB 15:58
PROVIDERS: PCP Physician Assistant; Visit Provider Physician Assistant
DX: R10.13 Epigastric pain (principal); D50.9 Iron deficiency anemia, unspecified
CPT/HCPCS: 36415; 80048; 80076; 83540; 83690; 85027

== ENCOUNTER 2021-07-30 12:08 | Outpatient (REF) | payer OTHER, SELFPAY ==
[2021-07-30 12:20] LABS: OBS Int Ctl Valid YES; OBS1 POSITIVE (NEGATIVE)
== END 2021-07-30 12:09 | disposition home or self-care (01) ==
LOC: HO.LNP 12:08
PROVIDERS: Visit Provider Physician Assistant
DX: R10.13 Epigastric pain (principal)
CPT/HCPCS: 82272; 87338

== ENCOUNTER → 2021-08-18 07:47 | Outpatient (REF) | payer OTHER, SELFPAY ==
--- NOTE | ~2021-08-18 | NM_ITS ---
EXAMINATION: MD RADIONUCLIDE SOLID FOOD GASTRIC EMPTYING 4-HOUR STUDY CLINICAL INFORMATION: Abdominal pain. COMPARISON: Status post partial gastrectomy for gastric cancer; nausea and vomiting, EGD showed retained food in stomach. TECHNIQUE: A standard meal consisting of 4 oz of Egg Beaters brand tagged with 759 microcuries Tc-99m Sulfur Colloid, 8 oz water and 2 slices of toast with jelly was administered orally to the patient. Images were obtained using a dual head gamma camera in the anterior and posterior projections over of the stomach immediately post ingestion and at hourly intervals up to 4 hours post ingestion. The anterior and posterior counts at each time interval were averaged using the geometric mean and expressed as percentage of the immediate post ingestion counts. FINDINGS: There is good visualization of activity in the stomach immediately post ingestion. As the study progresses activity is visualized in the stomach and does not show more than minimal emptying into the small bowel over the 4 hour interval of this study. 1 hour 97% (normal 37%-90%) 2 hours 96% (normal 30%-60%) 3 hours 89% 4 hours 94% (normal 0%-10%) MD/MD gastric emptying study IMPRESSION: Markedly abnormal study. Almost no gastric emptying occurs during the 4 hour interval of this study. Only minimal small bowel activity is visualized at the end of the study.
== END ==
LOC: HO.NUCMED 07:47
PROVIDERS: PCP Physician Assistant; Visit Provider Internal Medicine Gastroenterology
DX: R10.9 Unspecified abdominal pain (principal); R11.2 Nausea with vomiting, unspecified; C16.9 Malignant neoplasm of stomach, unspecified; Z90.3 Acquired absence of stomach [part of]
CPT/HCPCS: 78264; A9541

== ENCOUNTER → 2021-08-26 09:11 | Outpatient (BNVA) | payer OTHER, SELFPAY | PROVIDERS: PCP Physician Assistant; Referring Provider Physician Assistant; Visit Provider Internal Medicine Gastroenterology | DX: G89.29 Other chronic pain (principal); R10.13 Epigastric pain; K21.9 Gastro-esophageal reflux disease without esophagitis; Z85.028 Personal history of other malignant neoplasm of stomach; Z92.21 Personal history of antineoplastic chemotherapy; Z92.3 Personal history of irradiation; Z90.3 Acquired absence of stomach [part of] | CPT/HCPCS: 99212 ==

== ENCOUNTER 2021-08-30 12:18 | Day surgery (SDC) | payer OTHER, SELFPAY ==
--- NOTE | 2021-08-26 15:04 | HO.ANESPROP2 ---
Documented by User: Irais Joe NP 08/26/21 15:07 HPI - Anesthesia Eval Consult details Narrative: 51yo M for Upper Endoscopy and Colonoscopy s/p partial gastrectomy 2006 r/t gastric cancer s/p EGD 01/2021 with [facility] Active Problems Active Problems: All Active Problems (Updated 08/11/21 @ 14:39 by Herve Chinchilla PA-C) Chronic abdominal pain (Acute) Fatigue (Acute) Epigastric pain (Acute) Right shoulder tendinitis (Acute) Contracture, right hand (Acute) HLD (hyperlipidemia) (Acute) Disc degeneration, lumbar (Acute) Screening for hypercholesterolemia (Acute) Screening for hypothyroidism (Acute) Screening for diabetes mellitus (DM) (Acute) Polyarthralgia (Acute) Annual physical exam (Acute) Spondylosis of lumbosacral spine without myelopathy (Acute) Internal derangement of elbow (Acute) Physical exam (Acute) Myalgia (Acute) Abdominal pain (Acute) Back pain (Acute) Arthritis (Acute) MDD (major depressive disorder), recurrent episode, moderate (Acute) Polyarthritis (Acute) Lumbar spine pain (Acute) Right elbow pain (Acute) Arthritis of right elbow (Acute) Smoker (Acute) Primary osteoarthritis, right elbow (Acute) Knee osteoarthritis (Acute) Spondylosis of lumbar spine (Acute) Generalized osteoarthritis (Acute) GERD (gastroesophageal reflux disease) (Acute) Stomach cancer (Acute) Past Medical History Medical History Depression Disc degeneration, lumbar Generalized osteoarthritis GERD (gastroesophageal reflux disease) Knee osteoarthritis Spondylosis of lumbar spine Spondylosis of lumbosacral spine without myelopathy Stomach cancer Family History Family History Father No problems noted. Mother Hx of type 1 diabetes mellitus Family history of high blood pressure Other Mental health disorder Substance use disorder Family history of problems with anesthesia: No Surgical History Surgical History H/O colonoscopy History of esophagogastroduodenoscopy (EGD) History of stomach cancer History of tonsillectomy Hx of bilateral hip replacements Hx of cholecystectomy History of Problems with Anesthesia: No Social History Social History Household Members: Spouse and Children Housing: Apartment Are you a primary caregiver assisted living to a significant other at home: No Do you presently have visiting nurse or other home services: No Alcohol intake: current Alcohol intake frequency: holidays/special occasions only Alcohol type: beer Patient Tobacco Use Status: Current everyday Tobacco user Tobacco use type: Cigarette Cigarette Packs Per Day: 0.5 Cigarettes Per Day: 10 e-Cigarette/Vaping Use: Never Used Advance Directives: No Advance Directives Information Provided: Yes service: No Current occupational status: unemployed Meds Allergies Allergy/AdvReac Type Severity Reaction Status Date / Time amoxicillin AdvReac Severe Vomiting Verified 08/26/21 09:20 iron AdvReac Intermediate Abdominal Verified 08/26/21 09:20 Pain ibuprofen [From Motrin] AdvReac upset Verified 08/26/21 09:20 stomach Exam Exam Date and Time: August 26, 2021 1504 Pertinent Lab Results Pertinent Lab Results: Laboratory Tests 07/27/21 07/27/21 16:15 16:15 WBC 13.1 H Hgb 12.6 L Hct 40.2 L Plt Count 366 D Sodium 140 Potassium 4.7 Chloride 104 Carbon Dioxide 28 BUN 11 Creatinine 0.94 Assessment and Plan Assessment Anesthesia Assessment: Chart Reviewed Final Anesthetic Review Family History of Problems with Anesthesia: No History of Problems with Anesthesia: No Documented by User: Tati Fonseca MD 08/30/21 13:02 [facility] Past Medical History Medical History Depression Disc degeneration, lumbar Generalized osteoarthritis GERD (gastroesophageal reflux disease) Knee osteoarthritis Spondylosis of lumbar spine Spondylosis of lumbosacral spine without myelopathy Stomach cancer Family History Family History Father No problems noted. Mother Hx of type 1 diabetes mellitus Family history of high blood pressure Other Mental health disorder Substance use disorder Surgical History Surgical History H/O colonoscopy History of esophagogastroduodenoscopy (EGD) History of stomach cancer History of tonsillectomy Hx of bilateral hip replacements Hx of cholecystectomy Social History Social History Household Members: Spouse and Children Housing: Apartment Are you a primary caregiver assisted living to a significant other at home: No Do you presently have visiting nurse or other home services: No Alcohol intake: current Alcohol intake frequency: holidays/special occasions only Alcohol type: beer Patient Tobacco Use Status: Current everyday Tobacco user Tobacco use type: Cigarette Cigarette Packs Per Day: 0.5 Cigarettes Per Day: 10 e-Cigarette/Vaping Use: Never Used Advance Directives: No Advance Directives Information Provided: Yes service: No Current occupational status: unemployed Meds Allergies Allergy/AdvReac Type Severity Reaction Status Date / Time amoxicillin AdvReac Severe Vomiting Verified 08/26/21 09:20 iron AdvReac Intermediate Abdominal Verified 08/26/21 09:20 Pain ibuprofen [From Motrin] AdvReac upset Verified 08/26/21 09:20 stomach Exam Airway Mallampati Class: II TM Dist: >3cm Neck ROM: Full Heart: rrr Lungs: cta Assessment and Plan Assessment Anesthesia Assessment: Anesthesia Plan Discussed and Chart Reviewed Final Anesthetic Review NPO: Yes ASA Class: III Final Preanesthetic Review: No Changes in Pt Med Stat, Meds/Allgs Chart Reviewed and Consent Obtained/Reviewed Patient Risk: Intermediate Procedure Risk: Intermediate Anesthetic Plan Anesthetic Plan: MAC: Disposition: Standard PACU
[2021-08-30 12:48] VITALS: BP 140/83; PULSE 88; RESP 18; TEMP 36.5; O2SAT 100; BMI 30.7
[2021-08-30] MEDS: Lactated Ringers 1,000 ML 100 ML IVCONT (13:39)
--- NOTE | 2021-08-30 13:46 | MHC.SHP ---
Pre-Procedural Eval Section A Date of Service: 08/30/21 The patient is an INPATIENT: No Changes since office visit: Yes Patient answered all questions; No Cold of Flu in the past 2 weeks, No New Medical Problems and No Changes in Medication The History & Physical has been completed within 30 days and I have reviewed it.: Yes Section B Chief Complaint: gastroparisis,reflux Allergies: Allergies Allergy/AdvReac Type Severity Reaction Status Date / Time amoxicillin AdvReac Severe Vomiting Verified 08/26/21 09:20 iron AdvReac Intermediate Abdominal Verified 08/26/21 09:20 Pain ibuprofen [From Motrin] AdvReac upset Verified 08/26/21 09:20 stomach Plan Diagnosis/Plan: Change (EGD and colonoscopy for evaluation of abdominal pain and wt loss) I have reviewed the history and physical and performed a pertinent physical examination on my patient. No changes have occurred unless specified.
--- NOTE | 2021-08-30 13:47 | PM.OP ---
Brief Operative Note Date of Service: 08/30/21 Pre-op diagnosis: abdominal pain, gastroparesis Post-op diagnosis: other (Gastroparesis, status post partail gastrectomy, diverticulosis, hemorrhoids) Procedure: FLEXIBLE TRANSORAL UPPER GASTROINTESTINAL ENDOSCOPY WITH BIOPSIES AND BALLOON DILATION OF GASTRO-JEJUNAL ANASTOMOSIS AND COLONOSCOPY TILL CECUM WITH BIOPSIES UPPER ENDOSCOPY Consent: Indications for the procedure and potential complications of bleeding, perforation, reaction to medications and missed diagnosis were discussed with the patient and informed consent was obtained. Instrument: Olympus GIF H 190 mid size upper endoscope Monitoring: Vital signs and clinical assessment, continuous EKG monitoring, Pulse oximetry, Carbon Dioxide monitoring and blood pressure monitoring were done throughout the procedure. Procedure: The patient was placed in the left lateral decubitis position and pre-procedure medications were administered and a bite block was placed. The endoscope was inserted into the mouth and advanced under direct vision to the third part of duodenum. A careful inspection was made as the upper endoscope was withdrawn including a retroflexed examination of the proximal stomach; Findings and interventions are described below. Findings: Larynx: Edema of arytenoid cartilages Esophagus: GE junction at 35 cms. No esophagitis or Ray's.? Stomach:?Small amount of retained partially digested food in the stomach - which was suctioned completely.? Edematous folds at Gastro-duodenal anastomosis - multiple biopsies were obtained.? Able to advance a midsize upper endoscope through the anastomosis into the jejunum. Gastro-duodenal anastomosis was dilated with a 19 mm (57 F) CRE balloon x 60 seconds with moderate resistance. Grade 2 flap valve on retroflexed examination of the cardia. . Duodenum: Edematous folds noted in the duodenum - biopsied. Intervention: Biopsies as noted above COLONOSCOPY PROCEDURE NOTE Consent: Indications for the procedure and potential complications of bleeding, perforation, reaction to medications and missed diagnosis were discussed with the patient and informed consent was obtained. Instrument: Olympus PCF H 190 L variable stiffness pediatric colonoscope Monitoring: Vital signs and clinical assessment, intermittent blood pressure monitoring, continuous EKG monitoring, Pulse oximetry and Carbon Dioxide monitoring were done throughout the procedure. Colon withdrawl time was 25 minutes. Procedure: The patient was placed in the left lateral decubitis position and pre-procedure medications were administered. After a digital rectal examination of the ano-rectum, the video colonoscope was inserted into the rectum and advanced through the colon to the cecum. The colonoscope was slowly withdrawn in a retrograde panoramic fashion and the colon mucosa was carefully examined including a retroflexed view of the rectum. Findings and interventions are described below. Procedure Difficulty: Without difficulty Findings: Terminal Ileum: Distal 5 cms was examined and appeared normal Cecum: Patchy erythema in the right colon - random biopsies were obtained to rule out IBD Ascending Colon: Patchy erythema in the right colon - random biopsies were obtained to rule out IBD Transverse Colon: Normal Descending Colon: Moderate diverticulosis Sigmoid Colon: Moderate diverticulosis Rectum: Normal Ano-rectum: Moderate internal hemorrhoids Colon preparation: Good after copious irrigation Impression and Post Procedure Diagnosis: Endoscopy Findings: STOMACH: Small amount of retained partially digested food in the stomach - which was suctioned completely.? Edematous folds at Gastro-duodenal anastomosis - multiple biopsies were obtained.? Able to advance a midsize upper endoscope through the anastomosis into the jejunum. Gastro-duodenal anastomosis was dilated with a 19 mm (57 F) CRE balloon x 60 seconds with moderate resistance. DUODENUM: Edematous folds noted in the duodenum - biopsied. Colonoscopy Findings: No polyps were detected. Patchy erythema in the right colon - random biopsies were obtained from right and left colon to rule out IBD Moderate diverticulosis seen in the left colon Moderate hemorrhoids on retroflexed exam. Of note pt has had post prandial abdominal pain since he had gastric surgery in 2006. Plan: Await pathology results Patient has an appointment on 12/09/21 in the GI Clinic with Cristina Mendez M.D.. Repeat Colonoscopy interval based on path results - in 5 years. Above findings were reviewed with the patient and Gastroparesis and diverticulosis handouts were given in the discharge area Surgeon: Cristina Mendez MD Anesthesia: MAC (Rae Ortez CRNA) Was an Production Material Handler used for this Procedure?: Yes Production Material Handler: Mayito Mcnally Estimated blood loss (mL): 0 Pathology: other (A- SMALL BOWEL BXS R/O SPRUE B- ANASTAMOSIS SITE BXS C- RIGHT COLON BXS R/O IBD D- LEFT COLON BXS R/O IBD) Condition: stable Disposition: PACU
--- NOTE | 2021-08-30 13:51 | W.PM.OPN ---
Operative Note Operative Note Date of Service: 08/30/21 Narrative: Pre-op diagnosis: abdominal pain, gastroparesis Post-op diagnosis:?other (Gastroparesis, status post partial gastrectomy (Bilroth 1 anatomy), diverticulosis, hemorrhoids) Procedure: FLEXIBLE TRANSORAL UPPER GASTROINTESTINAL ENDOSCOPY WITH BIOPSIES AND BALLOON DILATION OF GASTRO-JEJUNAL ANASTOMOSIS AND COLONOSCOPY TILL CECUM WITH BIOPSIES UPPER ENDOSCOPY Consent:?Indications for the procedure and potential complications of bleeding, perforation, reaction to medications and missed diagnosis were discussed with the patient and informed consent was obtained. Instrument:?Olympus GIF H 190 mid size upper endoscope Monitoring: Vital signs and clinical assessment, continuous EKG monitoring, Pulse oximetry, Carbon Dioxide monitoring and blood pressure monitoring were done throughout the procedure. Procedure:?The patient was placed in the left lateral decubitis position and pre-procedure medications were administered and a bite block was placed. The endoscope was inserted into the mouth and advanced under direct vision to the third part of duodenum. A careful inspection was made as the upper endoscope was withdrawn including a retroflexed examination of the proximal stomach; Findings and interventions are described below. Findings: Larynx:? Edema of arytenoid cartilages Esophagus:?GE junction at 35 cms.? No esophagitis or Ray's.? Stomach:?Small amount of retained partially digested food in the stomach - which was suctioned completely.? Edematous folds at Gastro-duodenal anastomosis - multiple biopsies were obtained.? Able to advance a midsize upper endoscope through the anastomosis into the jejunum. Gastro-duodenal anastomosis was dilated with a 19 mm (57 F) CRE balloon x 60 seconds with moderate resistance. Grade 2 flap valve on retroflexed examination of the cardia. . Duodenum:?Edematous folds noted in the duodenum - biopsied. Intervention:?Biopsies as noted above COLONOSCOPY PROCEDURE NOTE Consent:?Indications for the procedure and potential complications of bleeding, perforation, reaction to medications and missed diagnosis were discussed with the patient and informed consent was obtained. Instrument:?Olympus PCF H 190 L variable stiffness pediatric colonoscope Monitoring:?Vital signs and clinical assessment, intermittent blood pressure monitoring, continuous EKG monitoring, Pulse oximetry and Carbon Dioxide monitoring were done throughout the procedure. Colon withdrawl time was 25 minutes. Procedure:?The patient was placed in the left lateral decubitis position and pre-procedure medications were administered. After a digital rectal examination of the ano-rectum, the video colonoscope was inserted into the rectum and advanced through the colon to the cecum. The colonoscope was slowly withdrawn in a retrograde panoramic fashion and the colon mucosa was carefully examined including a retroflexed view of the rectum. Findings and interventions are described below. Procedure Difficulty:?Without difficulty Findings: Terminal Ileum: Distal 5 cms was examined and appeared normal Cecum:? Patchy erythema in the right colon - random biopsies were obtained to rule out IBD Ascending Colon:??Patchy erythema in the right colon - random biopsies were obtained to rule out IBD Transverse Colon:??Normal Descending Colon:? Moderate diverticulosis Sigmoid Colon:??Moderate diverticulosis Rectum:??Normal Ano-rectum:??Moderate internal hemorrhoids Colon preparation:? Good after copious irrigation Impression and Post Procedure Diagnosis: Endoscopy Findings: STOMACH: Small amount of retained partially digested food in the stomach - which was suctioned completely.? Edematous folds at Gastro-duodenal anastomosis - multiple biopsies were obtained.? Able to advance a midsize upper endoscope through the anastomosis into the jejunum. Gastro-duodenal anastomosis was dilated with a 19 mm (57 F) CRE balloon x 60 seconds with moderate resistance. DUODENUM: Edematous folds noted in the duodenum - biopsied. Colonoscopy Findings: No polyps were detected. Patchy erythema in the right colon - random biopsies were obtained from right and left colon to rule out IBD Moderate diverticulosis seen in the left colon Moderate hemorrhoids on retroflexed exam. Of note pt has had post prandial abdominal pain since he had gastric surgery in 2006. Plan: Await pathology results Patient has an appointment on 12/09/21 in the GI Clinic with Cristina Mendez M.D.. Repeat Colonoscopy interval based on path results - in 5 years. Above findings were reviewed with the patient and Gastroparesis and diverticulosis handouts were given in the discharge area Surgeon: Cristina Mendez MD Anesthesia:?MAC (Rae Ortez CRNA) Was an Composing Room Machinist used for this Procedure?:?Yes Composing Room Machinist:?Mayito Mcnally Estimated blood loss (mL):?0 Pathology:?other (A- SMALL BOWEL BXS? R/O SPRUE? B- ANASTAMOSIS SITE BXS? C- RIGHT COLON BXS? R/O IBD? D- LEFT COLON BXS? R/O IBD) Condition:?stable Disposition:?PACU
[2021-08-30 15:09] VITALS: BP 112/78; PULSE 96; RESP 16; TEMP 37.2; O2SAT 99
[2021-08-30 15:23] VITALS: BP 117/83; PULSE 89; RESP 18; O2SAT 99
[2021-08-30 15:38] VITALS: BP 126/83; PULSE 85; RESP 18; O2SAT 99
[2021-08-30] MEDS: oxyCODONE HCl Immed Release 5 MG TABLET PO (15:50)
[2021-08-30 15:52] VITALS: BP 124/84; PULSE 82; RESP 18; O2SAT 99
[2021-08-30 16:07] VITALS: BP 125/81; PULSE 91; RESP 18; TEMP 37.1; O2SAT 97
== END 2021-08-30 16:30 | disposition home or self-care (01) ==
PROVIDERS: PCP Physician Assistant; Visit Provider Internal Medicine Gastroenterology
PROC: (CPT 45380; principal; 2021-08-30 13:40)
DX: R10.9 Unspecified abdominal pain (principal); K31.84 Gastroparesis; K57.30 Diverticulosis of large intestine without perforation or abscess without bleeding; K64.8 Other hemorrhoids; Z85.028 Personal history of other malignant neoplasm of stomach; Z90.3 Acquired absence of stomach [part of]; Z92.21 Personal history of antineoplastic chemotherapy; Z92.3 Personal history of irradiation; Z98.0 Intestinal bypass and anastomosis status; K21.9 Gastro-esophageal reflux disease without esophagitis; Z88.0 Allergy status to penicillin; Z88.8 Allergy status to other drugs, medicaments and biological substances; Z79.899 Other long term (current) drug therapy; Z90.49 Acquired absence of other specified parts of digestive tract; Z98.890 Other specified postprocedural states; Z86.16 Personal history of COVID-19; F17.210 Nicotine dependence, cigarettes, uncomplicated
CPT/HCPCS: 45380; 43259; 43239; 88305; C1726; J2405; J2765; J3010

== ENCOUNTER 2022-02-16 07:44 | Outpatient (REF) | payer OTHER, SELFPAY ==
[2022-02-16 08:27] LABS: Hematocrit 36.4 % (42.0-52.0); Hemoglobin 11.4 g/dl (14.0-18.0); Mean Corpuscular HGB Conc 31.3 g/dl (31.0-36.0); Mean Corpuscular Hemoglobin 25.9 pg (27.0-33.0); Mean Corpuscular Volume 82.5 fL (80.0-98.0); Mean Platelet Volume 8.8 fL (9.4-12.4); Platelet Count 438 X10*3/uL (160-400); Red Blood Count 4.41 X10*6/uL (4.60-5.80); Red Cell Distribution Width 15.1 % (11.0-16.0); White Blood Count 10.3 X10*3/uL (4.8-10.8)
[2022-02-16 09:13] LABS: Alanine Aminotransferase 21 U/L (0-40); Albumin Level 3.9 g/dL (3.5-5.0); Alkaline Phosphatase 103 U/L (39-117); Anion Gap 16 (12-20); Aspartate Amino Transferase 20 U/L (5-37); Bilirubin Total 0.2 mg/dL (0.0-1.0); Blood Urea Nitrogen 14 mg/dL (9-16); Carbon Dioxide 23 mmol/L (22-29); Chloride 105 mmol/L (96-108); Cholesterol 164 mg/dL; Estimated Glomerular Filt Rate > 60; Glucose Fasting 128 mg/dL (60-99); HDL Cholesterol 49 mg/dL; Potassium 4.8 mmol/L (3.3-5.1); Sodium 139 mmol/L (135-145); Total Protein 7.2 g/dL (6.5-8.0); Triglycerides 412 mg/dL
== END 2022-02-16 07:45 | disposition home or self-care (01) ==
LOC: HO.LAB 07:44
PROVIDERS: PCP Physician Assistant; Visit Provider Physician Assistant
DX: E78.2 Mixed hyperlipidemia (principal)
CPT/HCPCS: 36415; 80053; 80061; 85027

== ENCOUNTER → 2022-04-13 09:43 | Outpatient (REF) | payer OTHER, SELFPAY ==
--- NOTE | 2022-04-13 09:46 | CA_ITS ---
Acquisition Time: 2022-04-13 09:46:47 Total Exercise Time: 00:07:15 Test Indications: Chest Pain Medications: see h Protocol: MAINOR Max HR: 146 BPM 85% of Pred: 171 BPM Max BP: 176/070 mmHG Max Work Load: 8.9 METS Exercise stress test with exercise 7 min 15 sec of Mainor protocol, achieving 85% MPHR, 8.9 METs, with mild to moderate sob, no chest discomfort, without arrythmia, with normotensive response to exercise, without EKG changes meeting criteria for ischemia. In recovery his breathing normalized. Test reviewed with Dr Beckford. Referred By: Herve Chinchilla Overread By: LISSETH LEVY
== END ==
LOC: HO.CARD 09:43
PROVIDERS: PCP Physician Assistant; Visit Provider Physician Assistant
DX: R07.9 Chest pain, unspecified (principal)
CPT/HCPCS: 93017

== ENCOUNTER 2023-01-25 14:48 | Outpatient (AMB) | payer OTHER, SELFPAY ==
[2023-01-25 14:50] VITALS: BP 122/68; PULSE 75; O2SAT 99; BMI 27.6
--- NOTE | 2023-01-25 14:50 | A.OFFPC_ITS ---
Vital Signs 01/25/23 14:50 Height 5 ft 5 in Weight 166 lb BMI 27.6 BP 122/68 Blood Pressure Location Lt brachial Position Sitting Pulse 75 Pulse Source Pulse Oximeter Temp Source Skin Pulse Oximetry (%) 99 Oxygen Delivery Method Room Air Intake Visit Reasons: f/u adrenal insuf/ HTN Intake Note: Patient is here to follow up, pt requesting cardiology referral. pt states left knee pain X3days Hose Builder Required: No Allergies amoxicillin Adverse Reaction (Severe, Verified 01/25/23 15:24) Vomiting iron Adverse Reaction (Intermediate, Verified 01/25/23 15:24) Abdominal Pain ibuprofen [From Motrin] Adverse Reaction (Verified 01/25/23 15:24) upset stomach Medication List - Last Reconciled 01/25/23 by ESTHER Reyes acetaminophen ER 650 mg PO Q12H 30 days acetaminophen-codeine 300-30 mg 1 tab PO Q8H 21 days aspirin 1 tab PO DAILY atorvastatin 10 mg PO DAILY 90 days baclofen 10 mg PO BID 30 days bisacodyl 5 mg PO DAILY 30 days blood pressure monitor As directed clopidogrel 75 mg PO DAILY cyclobenzaprine 10 mg PO TID duloxetine 30 mg PO DAILY famotidine 20 mg PO BID 90 days gabapentin 100 mg PO TID 30 days hydrocortisone 10 mg (2 x 5 mg) PO BID 90 days hydrocortisone sod succ (PF) (Solu-Cortef Act-O-Vial (PF)) 100 mg (2 mL) IM ONCE PRN 25 days metformin ER 500 mg PO DAILY 90 days metronidazole 0.75% 1 appl topical DAILY 30 days mirtazapine 15 mg PO BEDTIME 90 days rivaroxaban (Xarelto) mg PO sertraline 100 mg PO DAILY 30 days trazodone 100 mg PO BEDTIME 90 days Tobacco use date assessed: 01/25/23 Dental Screening Dental Screen Date: 01/25/23 HPI f/u adrenal insuf/ HTN HPI Details Patient is a 52-year-old male who presents today for a routine follow- up. Patient of PRETTY Chinchilla, last visit 10/2022. Medical history significant for history of stomach cancer, GERD, generalized osteoarthritis, depression, hyperlipidemia, history of occlusion of superior mesenteric artery-does not see vascular provider-will refer, impaired fasting glucose, chest pain on exertion - he did have normal stress test 04/2022-reports random chest pains after intercourse-denies chest pain with activity- interested in cardiology referral for this, secondary adrenal insufficiency-does not see endocrinology-will referring-on hydrocortisone. Patient reports that he was admitted to the hospital couple months ago due to ulcers in his stomach and syncopal episode, he did have blood transfusion, he reports that Xarelto and clopidogrel were stopped due to bleeding and currently he is only on aspirin-will request records from the hospital - he was at [facility] in [place], [place]. Reports left knee pain for 3 days now, denies injury, reports taking codeine with Tylenol with very minimal improvement, cannot go to physical therapy due to no time. No shortness of breath or chest pain in the office today. 04/2022 Exercise stress test with exercise 7 min 15 sec of Clarke protocol, achieving 85% ?MPHR, 8.9 METs, with mild to moderate sob, no chest discomfort, without ?arrythmia, with normotensive response to exercise, without EKG changes meeting ?criteria for ischemia. In recovery his breathing normalized. Test reviewed with ?Dr Beckford. 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 Stomach cancer Superior mesenteric artery stenosis Surgical History H/O colonoscopy History of esophagogastroduodenoscopy (EGD) History of stomach cancer History of tonsillectomy Hx of bilateral hip replacements Hx of cholecystectomy Family History Father Hx of type 1 diabetes mellitus Mother Hx of type 1 diabetes mellitus Family history of high blood pressure Other Mental health disorder Substance use disorder Social History Household Members: Spouse and Children Housing: Apartment Are you a primary career development consultant to a significant other at home: No Do you presently have visiting nurse or other home services: No Alcohol intake: current Alcohol intake frequency: holidays/special occasions only Alcohol type: beer Patient Tobacco Use Status: Current everyday Tobacco user Tobacco use type: Cigarette Cigarette Packs Per Day: 0.5 Cigarettes Per Day: 6 e-Cigarette/Vaping Use: Never Used Second Hand Smoke Exposure: No service: No Current occupational status: unemployed Cognitive needs: No Hearing needs: No Vision needs: No Questionnaire PHQ-9 Over the last 2 weeks, how often have you been bothered by any of the following problems? 1. Little interest or pleasure in doing things: several days 2. Feeling down, depressed, or hopeless: nearly every day 3. Trouble falling or staying asleep, or sleeping too much: more than half the days 4. Feeling tired or having little energy: several days 5. Poor appetite or overeating: several days 6. Feeling bad about yourself - or that you are a failure or have let yourself or your family down: not at all 7. Trouble concentrating on things, such as reading the newspaper or watching television: not at all 8. Moving or speaking so slowly that other people could have noticed. Or the opposite - being so fidgety or restless that you have been moving around a lot more than usual: several days 9. Thoughts that you would be better off or of hurting yourself in some way: not at all Total score: 9 Depression Screening Interpretation: Negative 59015 - PHQ-9 Billing: Yes Source: Developed by Drs. Ceferino Jackson, Jocelyne Mckinley, Pankaj Almazan and colleagues, with an educational maribel from [employer]. Thrive Questionnaire Date Thrive assessed: 10/25/22 AUDIT C Alcohol Use Questionnaire (AUDIT-C) 1. How often do you have a drink containing alcohol?: Never 3. How often do you have six or more drinks on one occasion?: Never Total Score: 0 Score Reviewed/Action Taken: No JOLIE-7 AMB Questionnaire JOLIE-7 Date JOLIE - 7 assessed: 01/25/23 Source: Developed by Drs. Ceferino Jackson, Pankaj Dexter and colleagues, with an educational maribel from [employer]. Review of Systems Const Denies body aches, Denies chills, Denies fever(s) and Denies headache(s) Eyes Denies change in vision ENT Denies dizziness, Denies otalgia, Denies headache(s), Denies nasal discharge, Denies sinus pain and Denies sore throat Card Reports as per HPI, Denies chest pain, Denies edema, Denies lightheadedness and Denies dyspnea Resp Denies cough, Denies dyspnea and Denies wheezing GI Denies constipation, Denies diarrhea, Denies nausea and Denies vomiting Denies dysuria Musc Denies myalgias and Reports arthralgias Skin/Breast Denies rash Neuro Denies dizziness and Denies headache(s) Aller/Immun Denies wheezing Physical exam (Primary Care) Vital Signs: Last Vital Signs Pulse 75 01/25/23 14:50 BP 122/68 01/25/23 14:50 Pulse Ox 99 01/25/23 14:50 Oxygen Delivery Method Room Air 01/25/23 14:50 BMI result Body Mass Index 27.6 Tobacco/Smoking Status: Tobacco use Status Tobacco use date assessed 01/25/23 01/25/23 14:53 Patient Tobacco Use Status Current everyday Tobacco 01/25/23 14:53 Tobacco use type Cigarette 01/25/23 14:53 e-Cigarette/Vaping Use Never Used 01/25/23 14:53 PHQ-9: PHQ-9 Score PHQ-9: Total score 9 01/25/23 15:34 Depression Screening Interpretation: Negative Thrive Assessment: Date of Thrive Assessment Date Thrive assessed 10/25/22 01/25/23 14:53 Const General: cooperative and no acute distress Orientation/consciousness: patient oriented x3 HENMT Head: Yes normocephalic and Yes atraumatic Face and sinus: Yes sinuses nontender Mouth: oropharynx normal and moist mucous membranes Throat: Yes posterior oropharynx normal Eyes General: appearance normal, both eyes and all related structures Neck Neck: Yes normal visual inspection, Yes full ROM and Yes no lymphadenopathy Resp Effort & Inspection: normal respiratory effort and able to speak in complete sentences Auscultation: clear to auscultation bilaterally, no crackles, no rales, no rhonchi and no wheezes Cardio Rate: regular rate Rhythm: regular rhythm Heart sounds: S1 normal heart sound present and S2 normal heart sound present GI Palpation (GI): Soft to palpation Auscultation: normal bowel sounds Skin General skin exam: no rashes or lesions noted Neuro General: patient oriented x3 Gait exam (Neuro): Normal gait present Extrem General: Yes full ROM and No edema Left lower extremity: knee Details: normal to inspection, tenderness (Medial aspect) and abnormal ROM (Mild pain with range of motion); no swelling, no ecchymosis, no crepitus and no unusual warmth Results AMB Hemoglobin A1c AMB Hemoglobin A1c 5.3 % Last Edit by SHERRON Lancaster on 01/25/23 15:35 Results Reviewed Results Reviewed: Laboratory Last Values Hgb A1c (Clinic) 5.3 % (4.0-6.0) 01/25/23 15:33 Assessment and Plan Assessment & Plan (1) Occlusion of superior mesenteric artery: Code(s): K55.069 - Acute infarction of intestine, part and extent unspecified Plan: 10/2022 PRETTY Chinchilla Was found to superior mesenteric artery occlusion and had stent placement at [facility] Dr. Reyes. Has follow-up with vascular surgeon at [facility] in near future. According to discharge paperwork patient should continue on dual anti-platelet therapy and anticoagulation with Xarelto 2.5 b.i.d. Today, patient reports that Xarelto and clopidogrel were stopped at [facility] due to ulcers in his stomach, and he is currently only on aspirin. Will request records from hospital and will refer patient to vascular provider. (2) Secondary adrenal insufficiency: Code(s): E27.49 - Other adrenocortical insufficiency Plan: 10/2022 PRETTY Chinchilla Recent admission to [facility] showing low cortisol levels. Was started on hydrocortisone and has been less dizzy. Will refer to endocrinology for further evaluation of his secondary adrenal insufficiency. Given blood pressure cuff kit to do home blood pressure monitoring with goal blood pressure be below above 100/60 in below 140/90. Will give IM injection hydrocortisone firm urgency use only in an3 adrenal crisis. Patient is to continue hydrocortisone and will refer to see endocrinology. (3) Left knee pain: Code(s): M25.562 - Pain in left knee Plan: Patient reports left knee pain for the past 3 days, no injury. Physical exam with left knee medial aspect tenderness to palpation as well as some pain with range of motion. Patient has declined referral to physical therapy due to no time. Will provide patient with lidocaine patch diclofenac cream p.r.n.. Patient also can continue acetaminophen-codeine t.i.d. p.r.n.. Signs and symptoms reviewed when to notify provider go to the emergency department. (4) Intermittent chest pain: Code(s): R07.9 - Chest pain, unspecified Plan: Patient reports intermittent chest pain after intercourse, denies shortness of breath, no chest pain with walking. He did have normal stress test in the past. Will order EKG and refer to Cardiology. Signs and symptoms reviewed when to notify provider or go to the emergency department. (5) Impaired fasting glucose: Code(s): R73.01 - Impaired fasting glucose Plan: A1c 5.3 today Continue metformin 500 mg daily (6) HLD (hyperlipidemia): Code(s): E78.5 - Hyperlipidemia, unspecified Qualifiers: Hyperlipidemia type: mixed hyperlipidemia Qualified Code(s): E78.2 - Mixed hyperlipidemia Plan: Continue atorvastatin 10 mg daily Low-cholesterol diet Patient was encouraged to complete his blood work Plan Follow-up with PCP in 3 months or sooner as needed Orders: Orders ECG 12 lead EKG Today R07.9 - Chest pain, unspecified AMB Hemoglobin A1c Today Z13.9 - Encounter for screening, unspecified Referrals Endocrinology Referral E27.49 - Other adrenocortical insufficiency Cardiology Referral R07.9 - Chest pain, unspecified Vascular Surgery Referral K55.069 - Acute infarction of intestine, part and extent unspecified Medications: New diclofenac sodium 1% (Arthritis Pain (diclofenac)) 2 grams topical QID PRN 100 grams 0RF pain M25.562 - Pain in left knee lidocaine 4% (Aspercreme (lidocaine)) 1 patch topical BID PRN 30 ea 0RF pain M25.562 - Pain in left knee Coding Level of Care Code Est Pt Level 4 (85223) Diagnoses Occlusion of superior mesenteric artery K55.069 Secondary adrenal insufficiency E27.49 Left knee pain M25.562 Intermittent chest pain R07.9 Impaired fasting glucose R73.01 HLD (hyperlipidemia) E78.2 Hyperlipidemia type: mixed hyperlipidemia
== END 2023-01-25 15:54 | disposition home or self-care (01) ==
PROVIDERS: PCP Physician Assistant; Visit Provider Nurse Practitioner Family
DX: K55.069 Acute infarction of intestine, part and extent unspecified (principal); E27.49 Other adrenocortical insufficiency; M25.562 Pain in left knee; R07.9 Chest pain, unspecified; R73.01 Impaired fasting glucose; E78.2 Mixed hyperlipidemia
CPT/HCPCS: 83036; 99214

== ENCOUNTER 2023-02-18 10:26 | Outpatient (REF) | payer OTHER, SELFPAY | END 2023-02-18 10:27 | disposition home or self-care (01) | LOC: HO.LAB 10:26 | PROVIDERS: PCP Physician Assistant; Visit Provider Physician Assistant | DX: Z13.89 Encounter for screening for other disorder (principal) ==

== ENCOUNTER 2023-02-22 12:43 | Outpatient (REF) | payer OTHER, SELFPAY ==
--- NOTE | 2023-02-22 13:07 | ECG_ITS ---
Test Reason : chest pain Blood Pressure : / mmHG Vent. Rate : 064 BPM Atrial Rate : 064 BPM P-R Int : 150 ms QRS Dur : 090 ms QT Int : 412 ms P-R-T Axes : 062 060 070 degrees QTc Int : 425 ms Normal sinus rhythm Normal ECG No previous ECGs available Referred By: Whit Meneses Electronically Signed By:JUDD BRONSON
[2023-02-22 13:19] LABS: Red Blood Count 4.67 X10*6/uL (4.60-5.80); White Blood Count 6.6 X10*3/uL (4.8-10.8)
[2023-02-22 13:20] LABS: Hematocrit 35.4 % (42.0-52.0); Hemoglobin 10.4 g/dl (14.0-18.0); Mean Corpuscular HGB Conc 29.4 g/dl (31.0-36.0); Mean Corpuscular Hemoglobin 22.3 pg (27.0-33.0); Mean Corpuscular Volume 75.8 fL (80.0-98.0); Mean Platelet Volume 8.8 fL (9.4-12.4); Platelet Count 445 X10*3/uL (160-400); Red Cell Distribution Width 19.2 % (11.0-16.0)
[2023-02-22 13:59] LABS: Alanine Aminotransferase 14 U/L (0-40); Albumin Level 3.9 g/dL (3.5-5.0); Alkaline Phosphatase 63 U/L (39-117); Anion Gap 10 (12-20); Aspartate Amino Transferase 20 U/L (5-37); Bilirubin Total 0.2 mg/dL (0.0-1.0); Blood Urea Nitrogen 12 mg/dL (9-16); Calcium 9.2 mg/dL (8.4-10.2); Carbon Dioxide 28 mmol/L (22-29); Chloride 109 mmol/L (96-108); Cholesterol 167 mg/dL (<200); Estimated Glomerular Filt Rate > 60; Glucose Fasting 97 mg/dL (60-99); HDL Cholesterol 67 mg/dL (>40); LDL Cholesterol Calculated 64 mg/dL (<100); Potassium 3.8 mmol/L (3.3-5.1); Sodium 143 mmol/L (135-145); Total Protein 7.2 g/dL (6.5-8.0); Triglycerides 181 mg/dL (<150)
[2023-02-22 14:24] LABS: Prostate Specific Antigen Scr 0.71 ng/mL (<0.05-4.0)
[2023-02-24 01:59] LABS: Rubella IgG Antibody <0.90 Index; Rubeola IgG (Measles) <13.50 AU/mL
[2023-02-24 22:13] LABS: TS Negative Control Passed; TS Panel A 0; TS Panel B 0; TS Positive Control Passed; TSpotTB Negative (Negative)
== END 2023-02-22 12:44 | disposition home or self-care (01) ==
LOC: HO.LAB 12:43
PROVIDERS: Absent Provider Physician Assistant; PCP Physician Assistant; Visit Provider Nurse Practitioner Family
DX: Z12.5 Encounter for screening for malignant neoplasm of prostate (principal); Z11.1 Encounter for screening for respiratory tuberculosis; R07.9 Chest pain, unspecified; E78.2 Mixed hyperlipidemia; E27.49 Other adrenocortical insufficiency; Z78.9 Other specified health status
CPT/HCPCS: 36415; 80053; 80061; 84153; 85027; 86481; 86735; 86762; 86765; 93005

== ENCOUNTER 2023-02-22 14:00 | Outpatient (AMB) | payer OTHER, SELFPAY ==
--- NOTE | 2023-02-22 14:08 | AM.OFFVISNUR ---
Intake Intake Visit Reasons: tetanus shot Allergies amoxicillin Adverse Reaction (Severe, Verified 01/25/23 15:24) Vomiting iron Adverse Reaction (Intermediate, Verified 01/25/23 15:24) Abdominal Pain ibuprofen [From Motrin] Adverse Reaction (Verified 01/25/23 15:24) upset stomach Immunizations Boostrix Tdap 2.5 Lf unit-8 mcg-5 Lf/0.5 mL intramuscular syringe Performing Provider: Herve Chinchilla PA-C Performing Location: [facility] Administered by: Pham Cotton RN on 02/22/23 14:12 Dose Route Admin Location Dispensed Lot Number Expiration Date NDC Transcribing Operators Supervisor 0.5 mL IM Left Deltoid 0.5 mL [id number] 03/07/25 56882-132-12 [employer] VIS Given Date VIS Provided VIS Publication Date 02/22/23 Single Vaccine 21 Eligibility Eligibility Date Funding Source Not [facility] Eligible 02/22/23 Private Coding Assessment & Plan Assessment & Plan Orders: Orders TDaP Immunization Today Z23 - Encounter for immunization
== END 2023-02-22 14:13 | disposition home or self-care (01) ==
PROVIDERS: PCP Physician Assistant; Visit Provider Physician Assistant
DX: Z23 Encounter for immunization (principal)
CPT/HCPCS: 90471; 90715

== ENCOUNTER 2023-02-28 15:47 | Outpatient (AMB) | payer OTHER, SELFPAY ==
--- NOTE | 2023-02-28 15:56 | AM.OFFVISNUR ---
Intake Intake Visit Reasons: MMR booster Allergies amoxicillin Adverse Reaction (Severe, Verified 01/25/23 15:24) Vomiting iron Adverse Reaction (Intermediate, Verified 01/25/23 15:24) Abdominal Pain ibuprofen [From Motrin] Adverse Reaction (Verified 01/25/23 15:24) upset stomach Immunizations M-M-R II (PF) 1,000-12,500 TCID50/0.5 mL subcutaneous solution Performing Provider: Herve Chinchilla PA-C [facility] Administered by: Pham Cotton RN on 02/28/23 16:10 Dose Route Admin Location Dispensed Lot Number Expiration Date NDC Methods Time Analyst 0.5 mL subcut Left Arm 0.5 mL [id number] 03/29/23 3659-3694-11 [employer]CK [employer] & D VIS Given Date VIS Provided VIS Publication Date 02/28/23 Single Vaccine 21 Eligibility Eligibility Date Funding Source Not [facility] Eligible 02/28/23 Private Coding Assessment & Plan Assessment & Plan Orders: Orders MMR Immunization Today Z23 - Encounter for immunization
== END 2023-02-28 16:37 | disposition home or self-care (01) ==
PROVIDERS: PCP Physician Assistant; Visit Provider Physician Assistant
DX: Z23 Encounter for immunization (principal)
CPT/HCPCS: 90471; 90472; 90707; 90716